=== PATIENT | male | born 1975 ===

== ENCOUNTER → 2023-03-23 | Outpatient (CLI) | payer OTHER ==
[~2023-03-23] VITALS: Ht 175.3 cm; Wt 112.5 kg
[~2023-03-23] MED LIST: B COMPLEX1 EACH PO; COLACE100 MG PO; COZAAR50 MG PO; D3 PLUS K2 DOT1 EACH PO; HYDROCHLOROTHIA25 MG PO; INTESTINEX680 M1 PO; LEVOFLOXACIN750 MG PO; MAGNESIUM250 M1 PO; METRONIDAZOLE500 MG PO; MOUNJARO7.5 MG/0.5; NEURONTIN300 MG PO; PERCOCET 5-3251 EACH PO; PROTONIX40 MG PO
== END | disposition home or self-care (01) ==
LOC: RAD 08:00 → EDSTATUS 10:45 → ADM 10:45 → SURH 04-13 09:30 → EDSTATUS 04-13 10:45
PROVIDERS: ATTEND Surgery
DX: K43.2 Incisional hernia without obstruction or gangrene (principal); Z01.818 Encounter for other preprocedural examination

== ENCOUNTER 2023-04-15 10:33 | Inpatient (IN) | payer OTHER ==
[~2023-04-15] VITALS: Ht 175.3 cm; Wt 108.9 kg
[~2023-04-15 10:33] MED LIST changes: -COLACE100 MG PO; -INTESTINEX680 M1 PO; -LEVOFLOXACIN750 MG PO; -METRONIDAZOLE500 MG PO; -NEURONTIN300 MG PO; -PERCOCET 5-3251 EACH PO; -PROTONIX40 MG PO
[2023-04-15 11:52] LABS: PH,URINE 5.5 (5.0-8.0); URINE APPEARANCE Clear; URINE BILIRRUBIN Negative (NEGATIVE); URINE BLOOD Negative; URINE COLOR Dark Yellow; URINE GLUCOSE Negative (NEGATIVE); URINE LEUKOCYTE Negative; URINE NITRATE Negative; URINE PROTEIN Negative (NEGATIVE); URINE UROBILINOGEN 0.2 E.U./dl
[2023-04-15 11:58] LABS: URINE BACTERIA 70.5 uL (0.0-1933); URINE EPITHELIAL CELLS 2.7 uL (0.0-38.8); URINE RBC 3.1 uL (0.0-20.8); URINE WBC 4.3 uL (0.0-23.2)
[2023-04-15 12:16] LABS: HEMATOCRIT 47.3 % (39.0-48.0); HEMOGLOBIN 16.1 g/dL (13-16.00); MEAN CELL VOLUME 94.7 fL (80.0-100.00); MEAN CORPUSCULAR HEMOGLOBIN 32.2 pg (27.00-32.0); PLATELET COUNT 351 K/uL (150-450); RED BLOOD COUNT 4.99 M/uL (4.00-6.00); RED CELL DISTRIBUTION WIDTH 13.3 % (11.5-14.5)
[2023-04-15 12:45] LABS: INR 1.01; PARTIAL THROMBOPLASTIN TIME 29.3 SECONDS (22.0-34.0); PROTHROMBIN TIME 10.6 SECONDS (9.0-11.5)
[2023-04-15 13:03] LABS: ALBUMIN 3.7 gm/dL (3.4-5.0); BILIRUBIN TOTAL 0.37 mg/dL (0.3-1.2); BILIRUBIN,CONJUGATED 0.14 mg/dL (0.0-0.2); BILIRUBIN,UNCONJUGATED 0.23 mg/dL (0.0-0.6); CALCIUM 9.2 mg/dL (8.5-10.1); CREATININE SERUM 0.93 mg/dL (0.70-1.30); GFR 87.09; POTASSIUM 4.46 mEq/L (3.5-5.1); TOTAL PROTEIN 7.7 gm/dL (6.4-8.2)
[2023-04-30 07:24] LABS: HEMATOCRIT 26.2 % (39.0-48.0); MEAN CELL VOLUME 94.9 fL (80.0-100.00); MEAN CORPUSCULAR HEMOGLOBIN 32.6 pg (27.00-32.0); MEAN CORPUSCULAR HGB CONC 34.3 g/dl (32.0-36.0); PLATELET COUNT 216 K/uL (150-450); RED BLOOD COUNT 2.76 M/uL (4.00-6.00); RED CELL DISTRIBUTION WIDTH 13.5 % (11.5-14.5)
[2023-04-30 07:47] LABS: CALCIUM 7.6 mg/dL (8.5-10.1); CREATININE SERUM 0.63 mg/dL (0.70-1.30); GFR 136.51; POTASSIUM 3.98 mEq/L (3.5-5.1)
[2023-04-30 20:50] LABS: HEMATOCRIT 26.3 % (39.0-48.0); MEAN CELL VOLUME 94.5 fL (80.0-100.00); MEAN CORPUSCULAR HGB CONC 33.9 g/dl (32.0-36.0); PLATELET COUNT 234 K/uL (150-450); RED BLOOD COUNT 2.78 M/uL (4.00-6.00); RED CELL DISTRIBUTION WIDTH 13.2 % (11.5-14.5)
[2023-04-30 20:54] LABS: HEMOGLOBIN 8.9 g/dL (13-16.00)
[2023-05-01 08:28] LABS: ALBUMIN 2.3 gm/dL (3.4-5.0); BILIRUBIN TOTAL 0.34 mg/dL (0.3-1.2); CALCIUM 7.9 mg/dL (8.5-10.1); CREATININE SERUM 0.57 mg/dL (0.70-1.30); GFR 153.22; GLOBULINA 3.2 G/DL (2.4-3.5); MAGNESIUM 2.3 mg/dL (1.8-2.4); POTASSIUM 3.84 mEq/L (3.5-5.1); TOTAL PROTEIN 5.5 gm/dL (6.4-8.2)
[2023-05-01 09:18] LABS: HEMATOCRIT 25.5 % (39.0-48.0); MEAN CELL VOLUME 95.4 fL (80.0-100.00); PLATELET COUNT 257 K/uL (150-450); RED BLOOD COUNT 2.68 M/uL (4.00-6.00)
[2023-05-01 09:27] LABS: HEMOGLOBIN 8.7 g/dL (13-16.00); MEAN CORPUSCULAR HEMOGLOBIN 32.4 pg (27.00-32.0)
[2023-05-01] MEDS ORDERED: NEURONTIN300 MG PO (11:35)
[2023-05-01] MEDS ORDERED: COLACE100 MG PO (11:35)
[2023-05-01] MEDS ORDERED: PERCOCET 5-3251 EACH PO (11:35)
== END 2023-05-01 12:33 | disposition home or self-care (01) | DRG 331 ==
LOC: O/R 04-27 05:49 → SURG 04-27 07:00 → CIR.AMB 04-27 10:32 → EDSTATUS 04-27 10:41 → SURG 04-27 10:41
PROVIDERS: Internal Medicine; ADMIT Surgery; ATTEND Surgery
PROC: 0DQL0ZZ Repair Transverse Colon, Open Approach (ICD-10-PCS; principal; 2023-04-29)
PROC: 0WUF07Z Supplement Abdominal Wall with Autologous Tissue Substitute, Open Approach (ICD-10-PCS; 2023-04-29)
PROC: 0KXL0Z6 Transfer Left Abdomen Muscle, Transverse Rectus Abdominis Myocutaneous Flap, Open Approach (ICD-10-PCS; 2023-04-29)
PROC: 0KXK0Z6 Transfer Right Abdomen Muscle, Transverse Rectus Abdominis Myocutaneous Flap, Open Approach (ICD-10-PCS; 2023-04-29)
DX: K43.2 Incisional hernia without obstruction or gangrene (principal); M62.08 Separation of muscle (nontraumatic), other site; L91.0 Hypertrophic scar; I10 Essential (primary) hypertension

== ENCOUNTER 2023-05-24 09:56 | Emergency (ER) | payer OTHER ==
[~2023-05-24] VITALS: Ht 175.3 cm; Wt 105.7 kg
[~2023-05-24 09:56] MED LIST changes: +COLACE100 MG PO; +NEURONTIN300 MG PO; +PERCOCET 5-3251 EACH PO
== END 2023-05-24 12:49 | disposition home or self-care (01) ==
LOC: ER 09:56
DX: L76.34 Postprocedural seroma of skin and subcutaneous tissue following other procedure (principal); R10.9 Unspecified abdominal pain; I10 Essential (primary) hypertension; E11.9 Type 2 diabetes mellitus without complications

== ENCOUNTER 2023-05-27 17:51 | Inpatient (IN) | payer OTHER ==
[~2023-05-27] VITALS: Ht 175.3 cm; Wt 105.2 kg
[2023-05-27] MEDS ORDERED: ONDANSETRON HCL 2 MG/ML VIAL IV ONE (19:30)
[2023-05-27] MEDS ORDERED: 0.9 % SODIUM CHLORIDE 500 ML IV ONE (19:30)
[2023-05-27] MEDS ORDERED: FAMOTIDINE/PF 20 MG/2 ML VIAL IV ONE (19:30)
[2023-05-27 20:05] LABS: HEMATOCRIT 32.9 % (39.0-48.0); MEAN CELL VOLUME 90.4 fL (80.0-100.00); MEAN CORPUSCULAR HEMOGLOBIN 30.3 pg (27.00-32.0); MEAN CORPUSCULAR HGB CONC 33.5 g/dl (32.0-36.0); PLATELET COUNT 501 K/uL (150-450); RED BLOOD COUNT 3.64 M/uL (4.00-6.00); RED CELL DISTRIBUTION WIDTH 14.1 % (11.5-14.5)
[2023-05-27 20:14] LABS: PH,URINE 5.5 (5.0-8.0); URINE APPEARANCE Clear; URINE BILIRRUBIN Negative (NEGATIVE); URINE BLOOD Negative; URINE COLOR Yellow; URINE GLUCOSE Negative (NEGATIVE); URINE LEUKOCYTE Negative; URINE NITRATE Negative; URINE PROTEIN Negative (NEGATIVE); URINE UROBILINOGEN 0.2 E.U./dl
[2023-05-27 20:18] LABS: URINE BACTERIA 7.5 uL (0.0-1933); URINE EPITHELIAL CELLS 2.9 uL (0.0-38.8); URINE RBC 2.1 uL (0.0-20.8); URINE WBC 4.6 uL (0.0-23.2)
[2023-05-27 20:22] LABS: INR 1.14; PARTIAL THROMBOPLASTIN TIME 27.2 SECONDS (22.0-34.0); PROTHROMBIN TIME 11.9 SECONDS (9.0-11.5)
[2023-05-27 20:23] LABS: CALCIUM 9.3 mg/dL (8.5-10.1); CREATININE SERUM 0.85 mg/dL (0.70-1.30); GFR 96.62; POTASSIUM 3.3 mEq/L (3.5-5.1)
[2023-05-27] MEDS ORDERED: PIPERACILLIN/TAZOBACTAM SODIUM 3.375 GM VIAL IV ONE (21:00)
[2023-05-27] MEDS ORDERED: INSULIN LISPRO 1,000 UNIT/10 ML UNITS SUBCUTANEO PRN (22:00)
[2023-05-27] MEDS ORDERED: ONDANSETRON HCL 4 MG in 0.9 % SODIUM CHLORIDE 50 ML IV PRN (22:00)
[2023-05-27] MEDS ORDERED: DEXTROSE 50 % IN WATER 0.5 G/ML DISP.SYRIN IV PRN (22:00)
[2023-05-27] MEDS ORDERED: hydrALAZINE HCL 20 MG VIAL IV PRN (22:00)
[2023-05-27] MEDS ORDERED: MORPHINE SULFATE 2 MG/ML CARTRIDGE IV PRN (22:15)
[2023-05-27] MEDS ORDERED: ACETAMINOPHEN 500 MG GEL..CAP PO PRN (22:15)
[2023-05-27] MEDS ORDERED: VANCOMYCIN HCL 1,000 MG IV SCH (22:30)
[2023-05-27] MEDS ORDERED: VANCOMYCIN HCL 1,000 MG VIAL IV SCH (22:45)
[2023-05-28] MEDS ORDERED: PIPERACILLIN/TAZOBACTAM SODIUM 3.375 GM in 0.9 % SODIUM CHLORIDE 100 ML IV SCH
[2023-05-28 07:05] LABS: URINE APPEARANCE Clear; URINE BILIRRUBIN Negative (NEGATIVE); URINE BLOOD Negative; URINE COLOR Yellow; URINE GLUCOSE Negative (NEGATIVE); URINE LEUKOCYTE Negative; URINE NITRATE Negative; URINE PROTEIN Negative (NEGATIVE); URINE UROBILINOGEN 0.2 E.U./dl
[2023-05-28 07:09] LABS: URINE BACTERIA 18.8 uL (0.0-1933); URINE EPITHELIAL CELLS 3.3 uL (0.0-38.8); URINE WBC 6.3 uL (0.0-23.2)
[2023-05-28 07:16] LABS: INR 1.09; PARTIAL THROMBOPLASTIN TIME 27.3 SECONDS (22.0-34.0); PROTHROMBIN TIME 11.4 SECONDS (9.0-11.5)
[2023-05-28 07:20] LABS: HEMATOCRIT 30.4 % (39.0-48.0); HEMOGLOBIN 10.2 g/dL (13-16.00); MEAN CORPUSCULAR HEMOGLOBIN 30.9 pg (27.00-32.0); MEAN CORPUSCULAR HGB CONC 33.6 g/dl (32.0-36.0); PLATELET COUNT 432 K/uL (150-450); RED BLOOD COUNT 3.31 M/uL (4.00-6.00); RED CELL DISTRIBUTION WIDTH 13.8 % (11.5-14.5)
[2023-05-28 07:48] LABS: ALBUMIN 2.7 gm/dL (3.4-5.0); BILIRUBIN TOTAL 0.45 mg/dL (0.3-1.2); BILIRUBIN,CONJUGATED 0.1 mg/dL (0.0-0.2); BILIRUBIN,UNCONJUGATED 0.35 mg/dL (0.0-0.6); CALCIUM 8.6 mg/dL (8.5-10.1); CHOL HDL RATIO 3.3 (0-5.0); CREATININE SERUM 0.72 mg/dL (0.70-1.30); GFR 117.01; GLOBULINA 3.6 G/DL (2.4-3.5); POTASSIUM 4.22 mEq/L (3.5-5.1); TOTAL PROTEIN 6.3 gm/dL (6.4-8.2)
[2023-05-28 07:51] LABS: C-REACTIVE PROTEIN 13.4 MG/DL (0.00-0.29)
[2023-05-28 08:08] LABS: URINE RBC 0.7 uL (0.0-20.8)
[2023-05-28 08:26] LABS: ERYTHROCYTE SEDIMENTATION RATE > 130 mm/hr
[2023-05-28] MEDS ORDERED: HYDROGEN PEROXIDE TOP ONE (08:57)
[2023-05-28] MEDS ORDERED: POVIDONE-IODINE 118 ML BOTT TOP ONE ×2 (08:58→10:00)
[2023-05-28] MEDS ORDERED: PANTOPRAZOLE SODIUM 40 MG in 0.9 % SODIUM CHLORIDE 8 ML IV PUSH SCH (09:00)
[2023-05-28] MEDS ORDERED: HYDROCHLOROTHIAZIDE 25 MG TABLET PO SCH (09:00)
[2023-05-28] MEDS ORDERED: LOSARTAN POTASSIUM 50 MG TABLET PO SCH (09:00)
[2023-05-28] MEDS ORDERED: LACTOBACILLUS ACIDOPHILUS 1 CAP CAP PO SCH (09:00)
[2023-05-28] MEDS ORDERED: CEFTRIAXONE SODIUM 2,000 MG in 0.9 % SODIUM CHLORIDE 100 ML IV SCH (09:00)
[2023-05-28] MEDS ORDERED: ENOXAPARIN SODIUM 40 MG/0.4 ML SYRINGE SUBCUTANEO SCH (09:30)
[2023-05-28] MEDS ORDERED: HYDROGEN PEROXIDE 118 ML SOLUTION TOP ONE (10:00)
[2023-05-28] MEDS ORDERED: ENOXAPARIN SODIUM 40 MG/0.4 ML SYRINGE SUBCUTANEO ONE (10:28)
[2023-05-28] MEDS ORDERED: PANTOPRAZOLE SODIUM 40 MG/VIAL VIAL ONE (10:28)
[2023-05-28] MEDS ORDERED: TAMSULOSIN HCL 0.4 MG CAP PO ONE (10:29)
[2023-05-28] MEDS ORDERED: VANCOMYCIN HCL 1,000 MG VIAL ONE (10:29)
[2023-05-28] MEDS ORDERED: PIPERACILLIN/TAZOBACTAM SODIUM 3.375 GM VIAL IV ONE (10:31)
[2023-05-28] MEDS ORDERED: VANCOMYCIN HCL 1,000 MG VIAL IV SCH (21:00)
[2023-05-28] MEDS ORDERED: RINGERS SOLUTION,LACTATED 1,000 ML IV SCH (22:45)
[2023-05-29 08:22] LABS: CALCIUM 8.3 mg/dL (8.5-10.1); CREATININE SERUM 0.79 mg/dL (0.70-1.30); GFR 105.13; POTASSIUM 4.29 mEq/L (3.5-5.1)
[2023-05-29 08:56] LABS: HEMATOCRIT 30.9 % (39.0-48.0); HEMOGLOBIN 10.3 g/dL (13-16.00); MEAN CELL VOLUME 91.1 fL (80.0-100.00); MEAN CORPUSCULAR HEMOGLOBIN 30.4 pg (27.00-32.0); MEAN CORPUSCULAR HGB CONC 33.4 g/dl (32.0-36.0); PLATELET COUNT 466 K/uL (150-450)
[2023-05-29] MEDS ORDERED: VANCOMYCIN HCL 5 MG/ML REDILUIDO IV SCH (21:00)
[2023-05-30] MEDS ORDERED: PANTOPRAZOLE SODIUM 40 MG/VIAL VIAL ONE (07:39)
[2023-05-30 12:05] LABS: HEMATOCRIT 31.9 % (39.0-48.0); HEMOGLOBIN 10.8 g/dL (13-16.00); MEAN CELL VOLUME 90.6 fL (80.0-100.00); MEAN CORPUSCULAR HEMOGLOBIN 30.7 pg (27.00-32.0); MEAN CORPUSCULAR HGB CONC 33.9 g/dl (32.0-36.0); PLATELET COUNT 531 K/uL (150-450); RED BLOOD COUNT 3.52 M/uL (4.00-6.00)
[2023-05-30 12:31] LABS: CALCIUM 9.1 mg/dL (8.5-10.1); CREATININE SERUM 0.7 mg/dL (0.70-1.30); GFR 120.88; MAGNESIUM 2.3 mg/dL (1.8-2.4); POTASSIUM 4.3 mEq/L (3.5-5.1)
[2023-05-31] MEDS ORDERED: PIPERACILLIN/TAZOBACTAM SODIUM 3.375 GM VIAL IV ONE (07:40)
[2023-05-31] MEDS ORDERED: PANTOPRAZOLE SODIUM 40 MG/VIAL VIAL ONE (07:41)
[2023-05-31] MEDS ORDERED: levoFLOXacin IN DEXTROSE 5 % 150 ML IV SCH (16:15)
[2023-05-31] MEDS ORDERED: METRONIDAZOLE/SODIUM CHLORIDE 100 ML IV SCH (17:00)
[2023-06-01 09:09] LABS: HEMATOCRIT 34.4 % (39.0-48.0); HEMOGLOBIN 11.4 g/dL (13-16.00); MEAN CELL VOLUME 92.5 fL (80.0-100.00); MEAN CORPUSCULAR HEMOGLOBIN 30.6 pg (27.00-32.0); MEAN CORPUSCULAR HGB CONC 33.1 g/dl (32.0-36.0); PLATELET COUNT 607 K/uL (150-450); RED BLOOD COUNT 3.72 M/uL (4.00-6.00); RED CELL DISTRIBUTION WIDTH 13.9 % (11.5-14.5)
[2023-06-01 09:47] LABS: BILIRUBIN TOTAL 0.22 mg/dL (0.3-1.2); CALCIUM 9.9 mg/dL (8.5-10.1); CREATININE SERUM 0.78 mg/dL (0.70-1.30); GFR 106.69; GLOBULINA 4.3 G/DL (2.4-3.5); MAGNESIUM 2.4 mg/dL (1.8-2.4); PHOSPHOROUS 4.1 mg/dL (2.5-4.9); POTASSIUM 4.93 mEq/L (3.5-5.1); TOTAL PROTEIN 7.3 gm/dL (6.4-8.2)
[2023-06-03 18:58] LABS: HEMATOCRIT 33.2 % (39.0-48.0); HEMOGLOBIN 10.8 g/dL (13-16.00); MEAN CELL VOLUME 91.5 fL (80.0-100.00); MEAN CORPUSCULAR HEMOGLOBIN 29.8 pg (27.00-32.0); MEAN CORPUSCULAR HGB CONC 32.5 g/dl (32.0-36.0); PLATELET COUNT 600 K/uL (150-450); RED BLOOD COUNT 3.63 M/uL (4.00-6.00); RED CELL DISTRIBUTION WIDTH 14.8 % (11.5-14.5)
[2023-06-03 19:21] LABS: ALBUMIN 2.9 gm/dL (3.4-5.0); BILIRUBIN TOTAL 0.19 mg/dL (0.3-1.2); CALCIUM 9.2 mg/dL (8.5-10.1); CREATININE SERUM 0.71 mg/dL (0.70-1.30); GFR 118.92; GLOBULINA 3.8 G/DL (2.4-3.5); POTASSIUM 4.25 mEq/L (3.5-5.1); TOTAL PROTEIN 6.7 gm/dL (6.4-8.2)
[2023-06-04] MEDS ORDERED: DIATRIZOATE MEGLUMINE, SODIUM 30 ML BOTTLE PO ONE (10:45)
[2023-06-06 14:28] LABS: MEAN CELL VOLUME 92.1 fL (80.0-100.00); MEAN CORPUSCULAR HGB CONC 32.5 g/dl (32.0-36.0); PLATELET COUNT 611 K/uL (150-450); RED BLOOD COUNT 3.69 M/uL (4.00-6.00); RED CELL DISTRIBUTION WIDTH 14.9 % (11.5-14.5)
[2023-06-06 14:45] LABS: CALCIUM 9.1 mg/dL (8.5-10.1); CREATININE SERUM 0.64 mg/dL (0.70-1.30); GFR 134.05; POTASSIUM 4.15 mEq/L (3.5-5.1)
[2023-06-06 14:48] LABS: INR 1.16; PARTIAL THROMBOPLASTIN TIME 29.1 SECONDS (22.0-34.0)
[2023-06-08 05:18] LABS: HEMATOCRIT 33.4 % (39.0-48.0); MEAN CELL VOLUME 92.6 fL (80.0-100.00); MEAN CORPUSCULAR HEMOGLOBIN 30.6 pg (27.00-32.0); PLATELET COUNT 589 K/uL (150-450); RED BLOOD COUNT 3.61 M/uL (4.00-6.00); RED CELL DISTRIBUTION WIDTH 15.3 % (11.5-14.5)
[2023-06-13 05:09] LABS: ERYTHROCYTE SEDIMENTATION RATE 63 mm/hr; HEMATOCRIT 35.6 % (39.0-48.0); HEMOGLOBIN 11.7 g/dL (13-16.00); MEAN CELL VOLUME 92.5 fL (80.0-100.00); MEAN CORPUSCULAR HEMOGLOBIN 30.5 pg (27.00-32.0); PLATELET COUNT 532 K/uL (150-450); RED BLOOD COUNT 3.84 M/uL (4.00-6.00); RED CELL DISTRIBUTION WIDTH 15.6 % (11.5-14.5)
[2023-06-13 05:51] LABS: CALCIUM 8.4 mg/dL (8.5-10.1); CREATININE SERUM 0.72 mg/dL (0.70-1.30); GFR 117.01; MAGNESIUM 2.2 mg/dL (1.8-2.4); POTASSIUM 4.46 mEq/L (3.5-5.1)
[2023-06-13 05:56] LABS: C-REACTIVE PROTEIN 0.86 MG/DL (0.00-0.29)
[2023-06-13 10:28] LABS: INR 1.04; PROTHROMBIN TIME 10.9 SECONDS (9.0-11.5)
[2023-06-13] MEDS ORDERED: HYDROGEN PEROXIDE TOP ONE (11:59)
[2023-06-13] MEDS ORDERED: HYDROGEN PEROXIDE 118 ML SOLUTION TOP ONE (13:45)
[2023-06-13] MEDS ORDERED: SUGAMMADEX SODIUM 200 MG/2 ML VIAL IV ONE (14:06)
[2023-06-13] MEDS ORDERED: MORPHINE SULFATE 4 MG/ML VIAL IV PRN (14:30)
[2023-06-13] MEDS ORDERED: METRONIDAZOLE/SODIUM CHLORIDE 500 MG/100 ML PIGGYBACK IV ONE (16:21)
[2023-06-14 05:41] LABS: HEMATOCRIT 34.4 % (39.0-48.0); MEAN CELL VOLUME 91.8 fL (80.0-100.00); MEAN CORPUSCULAR HEMOGLOBIN 31.2 pg (27.00-32.0); PLATELET COUNT 509 K/uL (150-450); RED BLOOD COUNT 3.75 M/uL (4.00-6.00); RED CELL DISTRIBUTION WIDTH 15.6 % (11.5-14.5)
[2023-06-14 05:44] LABS: HEMOGLOBIN 11.7 g/dL (13-16.00)
[2023-06-14] MEDS ORDERED: SUGAMMADEX SODIUM 200 MG/2 ML VIAL IV ONE (15:15)
[2023-06-16 05:27] LABS: HEMATOCRIT 36.3 % (39.0-48.0); HEMOGLOBIN 12.1 g/dL (13-16.00); MEAN CELL VOLUME 92.2 fL (80.0-100.00); MEAN CORPUSCULAR HEMOGLOBIN 30.8 pg (27.00-32.0); MEAN CORPUSCULAR HGB CONC 33.4 g/dl (32.0-36.0); PLATELET COUNT 474 K/uL (150-450); RED BLOOD COUNT 3.93 M/uL (4.00-6.00); RED CELL DISTRIBUTION WIDTH 15.4 % (11.5-14.5)
[2023-06-16 05:38] LABS: ERYTHROCYTE SEDIMENTATION RATE 94 mm/hr
[2023-06-16 05:44] LABS: CALCIUM 9.2 mg/dL (8.5-10.1); CREATININE SERUM 0.65 mg/dL (0.70-1.30); GFR 131.67; MAGNESIUM 1.9 mg/dL (1.8-2.4); POTASSIUM 4.22 mEq/L (3.5-5.1)
[2023-06-16 05:47] LABS: C-REACTIVE PROTEIN 1.53 MG/DL (0.00-0.29)
[2023-06-17] MEDS ORDERED: LEVOFLOXACIN750 MG PO (12:34)
[2023-06-17] MEDS ORDERED: INTESTINEX680 M1 PO (12:35)
[2023-06-17] MEDS ORDERED: METRONIDAZOLE500 MG PO (12:35)
[2023-06-17] MEDS ORDERED: PROTONIX40 MG PO (12:36)
== END 2023-06-17 16:56 | disposition home or self-care (01) | DRG 858 ==
LOC: ER 17:51 → SURG 22:24 → O/R 06-15 13:36 → SURG 06-15 13:38
PROVIDERS: General Practice; Internal Medicine; Internal Medicine Infectious Disease; Nurse Practitioner Family; Surgery; ADMIT Internal Medicine; ATTEND Internal Medicine
PROC: BW21YZZ Computerized Tomography (CT Scan) of Abdomen and Pelvis using Other Contrast (ICD-10-PCS; 2023-05-27)
PROC: 0JB80ZZ Excision of Abdomen Subcutaneous Tissue and Fascia, Open Approach (ICD-10-PCS; 2023-05-28)
PROC: 0JQ80ZZ Repair Abdomen Subcutaneous Tissue and Fascia, Open Approach (ICD-10-PCS; 2023-05-28)
PROC: BW21YZZ Computerized Tomography (CT Scan) of Abdomen and Pelvis using Other Contrast (ICD-10-PCS; 2023-06-04)
PROC: 0WUF4JZ Supplement Abdominal Wall with Synthetic Substitute, Percutaneous Endoscopic Approach (ICD-10-PCS; principal; 2023-06-08)
PROC: BW21YZZ Computerized Tomography (CT Scan) of Abdomen and Pelvis using Other Contrast (ICD-10-PCS; 2023-06-10)
PROC: 0JQ10ZZ Repair Face Subcutaneous Tissue and Fascia, Open Approach (ICD-10-PCS; 2023-06-13)
PROC: 0J9100Z Drainage of Face Subcutaneous Tissue and Fascia with Drainage Device, Open Approach (ICD-10-PCS; 2023-06-13)
PROC: 2W5 Placement, Anatomical Regions, Removal (ICD-10-PCS; 2023-06-13)
PROC: BW21YZZ Computerized Tomography (CT Scan) of Abdomen and Pelvis using Other Contrast (ICD-10-PCS; 2023-06-16)
DX: T81.43XA Infection following a procedure, organ and space surgical site, initial encounter (principal); D72.829 Elevated white blood cell count, unspecified; E11.9 Type 2 diabetes mellitus without complications; Z79.4 Long term (current) use of insulin; I10 Essential (primary) hypertension; B96.5 Pseudomonas (aeruginosa) (mallei) (pseudomallei) as the cause of diseases classified elsewhere; K43.2 Incisional hernia without obstruction or gangrene; S31.109A Unspecified open wound of abdominal wall, unspecified quadrant without penetration into peritoneal cavity, initial encounter; S30.1XXA Contusion of abdominal wall, initial encounter